=== PATIENT | female | born 1955 | race Caucasian/White ===

== ENCOUNTER 2021-01-02 13:16 | Inpatient (IN) | payer MEDICARE ==
[~2021-01-02 13:16] MED LIST: Iopamidol-370 76% 500 ML 1 ML ONE
[2021-01-02 15:21] LABS: #Eosinphils 0.2 thou/uL (0.0-0.7); #Lymphocytes 1.5 thou/uL (1.20-3.40); #Neutrophils 12.4 thou/uL (1.40-6.50); %Basophils 0.3 % (0.0-1.0); %Eosinophils 1.4 % (0.0-10.0); %Lymphocytes 10.1 % (21.0-51.0); %Monocytes 6.7 % (0.0-10.0); %Neutrophils 81.6 % (42.0-75.0); Mean Corpuscular HGB CONC 32.7 g/dL (32.0-36.0); Mean Corpuscular Hemoglobin 27.6 pg (27.0-31.0); Mean Corpuscular Volume 84.4 fL (78.0-98.0); Mean Platelet Volume 7.6 fL (7.4-10.4); Platelet Count 285 thou/uL (130-400); RBC Distribution Width 13.1 % (11.5-14.5); Red Blood Cell (RBC) Count 5.06 mill/uL (4.20-5.40); White Blood Cell (WBC) Count 15.2 thou/uL (4.8-10.8)
[2021-01-02 15:32] LABS: Prothrombin Time 13.6 sec (12.0-14.7)
[2021-01-02 15:33] LABS: PTT 27.7 sec (22.9-36.1)
[2021-01-02 15:43] LABS: ALT (SGPT) 17 U/L (8-55); AST (SGOT) 11 U/L (5-34); Albumin 4.4 g/dL (3.4-4.8); Alkaline Phosphatase 98 U/L (40-110); Anion Gap 17 mmol/L (10-20); BUN (Urea Nitrogen) 12 mg/dL (9.8-20.1); Bilirubin, Total 0.5 mg/dL (0.2-1.2); Calc. Creatinine Clearance 0 mL/min (70-130); Calcium 9.5 mg/dL (7.8-10.44); Carbon Dioxide 22 mmol/L (23-31); Chloride 104 mmol/L (98-107); Globulin 2.7 g/dL (2.4-3.5); Glucose 155 mg/dL (80-115); Potassium 4.2 mmol/L (3.5-5.1); Protein, Total 7.1 g/dL (5.8-8.1); Sodium 139 mmol/L (136-145)
[2021-01-02] MEDS ORDERED: Heparin 10,000 UNITS/ 10 ML VIAL ONE (17:50)
[2021-01-02] MEDS ORDERED: Heparin 25,000 units/D5W 500 ML ONE (17:50)
[2021-01-02] MEDS ORDERED: Bisacodyl 5 MG TAB PO PRN (19:40)
[2021-01-02] MEDS ORDERED: Ondansetron ODT 4 MG TAB PO PRN (19:40)
[2021-01-02] MEDS ORDERED: HYDROcodone/Acetaminophen 5/325 mg Tablet PO PRN (19:40)
[2021-01-02] MEDS ORDERED: Senokot S 8.6-50 MG TAB PO PRN (19:40)
[2021-01-02] MEDS ORDERED: Acetaminophen 325 MG TAB PO PRN (19:40)
[2021-01-02] MEDS ORDERED: Calcium Carbonate 500 MG ChewTAB PO PRN (19:40)
[2021-01-02 21:05] LABS: Prothrombin Time 13.7 sec (12.0-14.7)
[2021-01-02 21:06] LABS: PTT 26.9 sec (22.9-36.1)
[2021-01-02] MEDS ORDERED: Enoxaparin Sodium 100 MG/ML SYRINGE ONE (22:13)
[2021-01-02] MEDS: Enoxaparin Sodium 100 MG/ML SYRINGE SC SCH (22:28)
[2021-01-02] MEDS ORDERED: Atorvastatin Calcium 20 MG TAB PO SCH (22:30)
[2021-01-02] MEDS ORDERED: Lisinopril 20 MG TAB PO SCH (22:30)
[2021-01-03 04:42] LABS: #Eosinphils 0.3 thou/uL (0.0-0.7); #Lymphocytes 2.1 thou/uL (1.20-3.40); #Monocytes 1.1 thou/uL (0.11-0.59); #Neutrophils 8.5 thou/uL (1.40-6.50); %Basophils 0.3 % (0.0-1.0); %Eosinophils 2.2 % (0.0-10.0); %Lymphocytes 17.5 % (21.0-51.0); %Monocytes 9.4 % (0.0-10.0); %Neutrophils 70.5 % (42.0-75.0); Mean Corpuscular HGB CONC 32.6 g/dL (32.0-36.0); Mean Corpuscular Hemoglobin 27.3 pg (27.0-31.0); Mean Corpuscular Volume 83.7 fL (78.0-98.0); Mean Platelet Volume 7.8 fL (7.4-10.4); Platelet Count 268 thou/uL (130-400); Red Blood Cell (RBC) Count 4.76 mill/uL (4.20-5.40); White Blood Cell (WBC) Count 12.1 thou/uL (4.8-10.8)
[2021-01-03] MEDS ORDERED: Enoxaparin Sodium 100 MG/ML SYRINGE ONE (09:08)
[2021-01-03] MEDS: Enoxaparin Sodium 100 MG/ML SYRINGE SC SCH ×2 (09:25→20:53)
[2021-01-03] MEDS: Lisinopril 20 MG TAB PO SCH (09:36)
[2021-01-03] MEDS ORDERED: Dextrose 50% Abboject 50 ML SYRINGE SLOW IVP PRN (12:04)
[2021-01-03] MEDS ORDERED: HumaLOG 300 UNITS/3 ML VIAL SC PRN (12:04)
[2021-01-03] MEDS ORDERED: Dextrose 5% in Water 1,000 ML IV PRN (12:04)
[2021-01-03 18:42] LABS: SARS-CoV-2 PCR by NAA Not Detected (NotDetected)
[2021-01-03] MEDS: Atorvastatin Calcium 20 MG TAB PO SCH (20:54)
[2021-01-04] MEDS: Enoxaparin Sodium 100 MG/ML SYRINGE SC SCH ×2 (08:11→20:13)
[2021-01-04] MEDS: Lisinopril 20 MG TAB PO SCH (08:11)
[2021-01-04 09:19] LABS: #Eosinphils 0.4 thou/uL (0.0-0.7); #Lymphocytes 1.4 thou/uL (1.20-3.40); #Neutrophils 7.3 thou/uL (1.40-6.50); %Basophils 0.3 % (0.0-1.0); %Eosinophils 4.1 % (0.0-10.0); %Lymphocytes 13.9 % (21.0-51.0); %Monocytes 9.5 % (0.0-10.0); %Neutrophils 72.3 % (42.0-75.0); Hemoglobin 13.1 g/dL (12.0-16.0); Mean Corpuscular Hemoglobin 28.6 pg (27.0-31.0); Mean Platelet Volume 8.3 fL (7.4-10.4); Platelet Count 246 thou/uL (130-400); RBC Distribution Width 13.1 % (11.5-14.5); Red Blood Cell (RBC) Count 4.59 mill/uL (4.20-5.40); White Blood Cell (WBC) Count 10.1 thou/uL (4.8-10.8)
[2021-01-04 10:28] LABS: Anion Gap 17 mmol/L (10-20); BUN (Urea Nitrogen) 12 mg/dL (9.8-20.1); Calc. Creatinine Clearance 0 mL/min (70-130); Calcium 9.4 mg/dL (7.8-10.44); Carbon Dioxide 24 mmol/L (23-31); Chloride 101 mmol/L (98-107); Glucose 150 mg/dL (80-115); Potassium 4.5 mmol/L (3.5-5.1); Sodium 137 mmol/L (136-145)
[2021-01-04] MEDS: HumaLOG 300 UNITS/3 ML VIAL SC PRN ×2 (12:29→17:11)
[2021-01-04 17:35] LABS: Cardiolipin IgA Ab 1.1 APL-U/mL (<14 Negative); Cardiolipin IgG Ab Less than 0.5 GPL-U/mL (<10 Negative); Cardiolipin IgM Ab 3.9 MPL-U/mL (<10 Negative); EliA APS New Method **** NEW METHOD ****
[2021-01-04] MEDS ORDERED: FLU VACC QS2021-22(65YR UP)/PF 240 MCG/0.7 ML SYRINGE IM ONE (18:30)
[2021-01-04] MEDS: Atorvastatin Calcium 20 MG TAB PO SCH (20:12)
[2021-01-05 05:59] LABS: #Eosinphils 0.4 thou/uL (0.0-0.7); #Lymphocytes 1.8 thou/uL (1.20-3.40); #Monocytes 0.9 thou/uL (0.11-0.59); #Neutrophils 5.2 thou/uL (1.40-6.50); %Basophils 0.5 % (0.0-1.0); %Eosinophils 4.6 % (0.0-10.0); %Lymphocytes 21.3 % (21.0-51.0); %Monocytes 10.7 % (0.0-10.0); %Neutrophils 62.9 % (42.0-75.0); Hemoglobin 12.5 g/dL (12.0-16.0); Mean Corpuscular HGB CONC 32.6 g/dL (32.0-36.0); Mean Corpuscular Hemoglobin 27.4 pg (27.0-31.0); Mean Corpuscular Volume 84.3 fL (78.0-98.0); Mean Platelet Volume 7.8 fL (7.4-10.4); Platelet Count 237 thou/uL (130-400); RBC Distribution Width 13.1 % (11.5-14.5); Red Blood Cell (RBC) Count 4.54 mill/uL (4.20-5.40); White Blood Cell (WBC) Count 8.3 thou/uL (4.8-10.8)
[2021-01-05 06:20] LABS: Anion Gap 14 mmol/L (10-20); BUN (Urea Nitrogen) 12 mg/dL (9.8-20.1); Calc. Creatinine Clearance 0 mL/min (70-130); Calcium 9.1 mg/dL (7.8-10.44); Carbon Dioxide 27 mmol/L (23-31); Chloride 104 mmol/L (98-107); Glucose 143 mg/dL (80-115); Potassium 4.7 mmol/L (3.5-5.1); Sodium 140 mmol/L (136-145)
[2021-01-05] MEDS: Lisinopril 20 MG TAB PO SCH (08:51)
[2021-01-05] MEDS: Enoxaparin Sodium 100 MG/ML SYRINGE SC SCH ×2 (08:51→20:00)
[2021-01-05] MEDS: HumaLOG 300 UNITS/3 ML VIAL SC PRN (11:45)
[2021-01-05 15:54] LABS: Protein C Activity 127 % (78-152)
[2021-01-05 17:02] LABS: HEX PHOS LA Tube 2 37.1 SEC; Hexagonal Phospholipid Neut 1.8 SEC (0-8.0)
[2021-01-05] MEDS: Atorvastatin Calcium 20 MG TAB PO SCH (20:04)
[2021-01-06 05:37] LABS: #Eosinphils 0.4 thou/uL (0.0-0.7); #Lymphocytes 1.7 thou/uL (1.20-3.40); #Monocytes 0.7 thou/uL (0.11-0.59); #Neutrophils 4.2 thou/uL (1.40-6.50); %Basophils 0.7 % (0.0-1.0); %Eosinophils 5.5 % (0.0-10.0); %Lymphocytes 23.7 % (21.0-51.0); %Monocytes 9.5 % (0.0-10.0); %Neutrophils 60.6 % (42.0-75.0); Mean Corpuscular HGB CONC 32.2 g/dL (32.0-36.0); Mean Corpuscular Hemoglobin 27.1 pg (27.0-31.0); Mean Platelet Volume 8.1 fL (7.4-10.4); Platelet Count 249 thou/uL (130-400); Red Blood Cell (RBC) Count 4.43 mill/uL (4.20-5.40)
[2021-01-06 05:58] LABS: Anion Gap 12 mmol/L (10-20); BUN (Urea Nitrogen) 14 mg/dL (9.8-20.1); Calc. Creatinine Clearance 0 mL/min (70-130); Calcium 9.2 mg/dL (7.8-10.44); Carbon Dioxide 26 mmol/L (23-31); Chloride 104 mmol/L (98-107); Glucose 133 mg/dL (80-115); Potassium 4.2 mmol/L (3.5-5.1); Sodium 138 mmol/L (136-145)
[2021-01-06] MEDS: Enoxaparin Sodium 100 MG/ML SYRINGE SC SCH (08:22)
[2021-01-06] MEDS: Lisinopril 20 MG TAB PO SCH (08:22)
[2021-01-06 16:45] VITALS: BP 134/75; TEMP 98.5
[2021-01-06] MEDS ORDERED: Apixaban 5 MG TAB PO SCH (21:00)
== END 2021-01-06 17:51 | disposition home or self-care (01) | DRG 301 ==
LOC: ERS 13:16 → ERHOLD 18:52 → 2SW 01-03 16:07
PROVIDERS: ADMIT Internal Medicine; ATTEND Internal Medicine
DX: I82.402 Acute embolism and thrombosis of unspecified deep veins of left lower extremity (principal); E11.9 Type 2 diabetes mellitus without complications; I10 Essential (primary) hypertension; E78.5 Hyperlipidemia, unspecified; D72.829 Elevated white blood cell count, unspecified; R91.1 Solitary pulmonary nodule; Z90.710 Acquired absence of both cervix and uterus; Z90.49 Acquired absence of other specified parts of digestive tract
CPT/HCPCS: 36415; 36416; 71275; 75635; 80048; 80053; 83090; 84484; 85025; 85240; 85300; 85303; 85305; 85307; 85379; 85598; 85610; 85730; 86147; 93005; J1644; J1650; Q9967; U0003; U0005

== ENCOUNTER 2023-02-18 15:05 | Outpatient (CLI) | payer MEDICARE | END 2023-02-18 15:06 | disposition home or self-care (01) | LOC: ULT 15:05 | PROVIDERS: ATTEND Nurse Practitioner Family | DX: R60.0 Localized edema (principal); D68.51 Activated protein C resistance ==